=== PATIENT | male | born 1955 | race Caucasian/White ===

== ENCOUNTER 2022-04-26 09:53 | Outpatient (CLI) | payer OTHER, SELFPAY ==
--- NOTE | 2022-04-26 15:28 | WPDPFTINT ---
PFT Procedure Performed PFT Procedure Performed Spirometry with Pre/Post Bronchodilator Plethysmography (Lung Vol) Diffusing Cap (DLCO) Flow Vol Loop PFT Interpretation Lung volumes were measured with the body plethysmography method. The diminished lung volumes are indicative of restrictive respiratory disease. In this setting, the normal RV may be due to underlying neuromuscular weakness. Clinical correlation advised. Spirometry showed diminished expiratory flow rates and a diminished FEV1 to FVC ratio of of 66% consistent with coexistent obstructive airway disease. Following administration of a bronchodilator, there was no significant increase in expiratory flow rates. Lung diffusion capacity is mildly reduced at 72% predicted. Impression: Combined restrictive respiratory and obstructive airway disease with no response to bronchodilators on this testing. Mild reduction in lung diffusion capacity.
== END 2022-04-26 09:54 | disposition home or self-care (01) ==
LOC: ANHPFT 09:57
PROVIDERS: PCP Registered Nurse; Visit Provider Registered Nurse
DX: R06.02 Shortness of breath (principal)
CPT/HCPCS: 94060; 94726; 94729